=== PATIENT | male | born 1990 | race Caucasian/White ===

== ENCOUNTER 2019-03-27 14:30 | Emergency (ER) | payer OTHER ==
[~2019-03-27] VITALS: Ht 180.3 cm; Wt 65.8 kg
--- NOTE | 2019-03-27 14:55 | NUR ---
Pt placed in bed 11.
[2019-03-27 15:01] VITALS: BP 129/70
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
[2019-03-27] MEDS ORDERED: TETRACAINE HCL/PF 0.5% OPTH 4 ML BTL OP ONE (15:40)
[2019-03-27 18:19] VITALS: BP 124/82
== END 2019-03-27 18:19 | disposition home or self-care (01) ==
LOC: MED 14:30
DX: S00.83XA Contusion of other part of head, initial encounter (principal); Y09 Assault by unspecified means; Y92.89 Other specified places as the place of occurrence of the external cause; Y99.8 Other external cause status; G89.11 Acute pain due to trauma
CPT/HCPCS: 70486; 99284